=== PATIENT | female | born 1955 | race Caucasian/White ===

== ENCOUNTER → 2021-10-13 | Outpatient (CLI) | payer OTHER | LOC: WOUNDCARE 10:30 | PROVIDERS: ATTEND Family Medicine | DX: I96 Gangrene, not elsewhere classified (principal); C44.729 Squamous cell carcinoma of skin of left lower limb, including hip; T81.31XA Disruption of external operation (surgical) wound, not elsewhere classified, initial encounter; L03.116 Cellulitis of left lower limb | CPT/HCPCS: 99204 ==

== ENCOUNTER → 2022-11-12 | Outpatient (CLI) | payer MEDICARE, OTHER | LOC: LAB 15:31 | PROVIDERS: ATTEND Nurse Practitioner Family | DX: M79.605 Pain in left leg (principal) | CPT/HCPCS: 36415; 85379 ==